=== PATIENT | female | born 1930 | race Caucasian/White ===

== ENCOUNTER 2018-11-01 16:08 | Outpatient (RCR) | payer MEDICARE ==
[~2018-11-01 16:08] MED LIST: ACE3 PO; ALE70 PO; ALL300 PO; ASC500 PO; ASPI-715 PO; ASPI324T37 PO; CALC-649 PO; CEP500 PO; FISH OIL1 CAP PO; FLUT16SP20 NS; FUR20 PO; FUR40 PO; FURO-43 PO; HCTZ25 PO; LEVO50TA80 PO; METO-231 PO; METXR500 PO; MULT1CAP41 PO; NIAC500C17 PO; OLOOD OS; OXYCONTIN PO; PER PO; POTA2.5T7 PO; RAN150 PO; SIMV-44 PO; TRIA-20 PO; TYLENOL ARTHRITIS; TYLENOL ARTHRITIS PO; VITA-197 PO
== END 2018-11-02 13:41 | disposition home or self-care (01) ==
LOC: SPU 16:08
PROVIDERS: ATTEND Internal Medicine Medical Oncology
DX: Z02.9 Encounter for administrative examinations, unspecified (principal)